=== PATIENT | male | born 1975 | race Caucasian/White ===

== ENCOUNTER 2018-11-19 11:27 | Outpatient (CLI) | payer OTHER, SELFPAY ==
[2018-11-19 12:53] LABS: Cholesterol 165 mg/dL (50-200); HDL Cholesterol 37 mg/dL (40-60); LDL CHOLESTEROL 69 mg/dL (<100); Triglyceride 240 mg/dL (30-150)
== END 2018-11-19 11:47 ==
PROVIDERS: PCP Family Medicine; Visit Provider Family Medicine
DX: Z00.00 Encounter for general adult medical examination without abnormal findings (principal); Z13.220 Encounter for screening for lipoid disorders
CPT/HCPCS: 36415; 80061; 83721

== ENCOUNTER 2019-03-02 07:09 | Emergency (ER) | payer OTHER, SELFPAY ==
[2019-03-02 07:12] VITALS: BP 151/89; PULSE 82; RESP 16; TEMP 36.5; O2SAT 99
--- NOTE | 2019-03-02 07:19 | W.ED.GENAD ---
Discharge Plan Disposition Patient Disposition: HOME Condition: Good Discharge Details Chief Complaint: EarProblem Clinical Impression: Otitis media Primary Care Provider: Glo Vazquez ED Provider: Jules Oglesby Home Meds and New Rx's Prescriptions: New amoxicillin-pot clavulanate [Augmentin] 875-125 mg tablet 1 tab PO BID Qty: 20 RF: 0 cyclobenzaprine 10 mg tablet 10 mg PO TID Qty: 14 RF: 0 hydrocodone-acetaminophen [Nokomis] 7.5-325 mg tablet 1 tab PO Q8H PRN (Reason: pain) Qty: 6 RF: 0 No Action diazepam 2 mg tablet 2 mg PO HS Qty: 90 RF: 0 hydrocodone-acetaminophen 5-325 mg tablet 1 tab PO QID MDD 2 PRN (Reason: pain) Qty: 28 RF: 0 multivitamin 1 EACH tablet 1 ea PO DAILY RF: 0 coenzyme Q10 [Co Q-10] 75 MG capsule 1 tab PO DAILY RF: 0 omega-3 fatty acids-fish oil 1 EACH capsule 1 ea PO DAILY RF: 0 magnesium 250 MG tablet 1 tab PO DAILY RF: 0 ibuprofen [Advil] 200 MG tablet 2 tab PO PRN RF: 0 cyclobenzaprine 10 MG tablet 10 mg PO BID PRNQty: 30 RF: 0 Discharge Instructions Instructions: Otitis Media (ED) Additional Instructions: You have an infection of your ear. Please take the antibiotic as directed. Please take 800 mg of ibuprofen every 6 hours and 1000 mg of Tylenol every 6 hours. If you notice any worsening of your symptoms, or any new symptoms such as vomiting, diarrhea, fever, chills, shortness of breath, chest pain, numbness, weakness, or fainting , please return immediately to the emergency department for reevaluation. Please follow up with your primary care provider as soon as possible for reassessment and reevaluation. As always, it was a pleasure participating in your medical care today. Referrals: Glo Vazquez MD, [place] [Primary Care Provider] - Medical Decision Making This is a 43-year-old male with past medical history of chronic pain, including chronic pain syndrome for the neck and shoulder, who presents today for left ear pain and a plugged sensation in the left ear as well as mild sore throat. Exam demonstrates notable otitis media on the left-hand side. He does state that the pain radiates down to the left arm and shoulder. He states that he has had similar episodes like this in the past with an ear infection. He denies any history of cardiac disease. Exam demonstrates no clinical evidence of meningitis, no abnormality for the upper extremity, no evidence of vascular compromise. We will treat for his otitis media, give Toradol and Tylenol. We will give Augmentin for his otitis media. I suspect that his left arm neck and shoulder pain are all secondary to his chronic pain in referred ear pain. However because of the patient's age, and atypical symptoms we will do a cardiac work-up to evaluate for any acute cardiac etiology causing his symptoms. The patient will be signed out to my colleague Dr. Woodall for final disposition. 8:09 AM The patient's laboratory work-up is returned, no significant abnormalities, normal troponin, no bandemia, normal electrolytes. EKG shows no evidence of STEMI. Patient has no chest pain, signs and symptoms are inconsistent with acute cardiac etiology. I feel that his muscles pain and spasm is secondary to referred pain from his ear infection. We discussed further work-up including further imaging at this point patient would like to hold off on any additional imaging at this time. I feel that the patient can be safely discharged home with treatment for his otitis media, as well as Flexeril for his mild muscle pain. Symptoms at this time are clinically consistent with dissection, carotid artery disease, or ACS. Discussed red flags which return the importance of close and prompt follow-up with his PCP this week. I have extensively reviewed the treatment plan and discharge instructions with the patient. I have addressed all patient concerns at this time. The patient was made aware of what symptoms to monitor for that would warrant a return to the emergency department. Discussed the plan with the patient, they demonstrate verbal understanding and agreement with our assessment and plan at this time. EKG 7: 21 Rate 82, intervals normal, sinus rhythm, less than 1 mm of nonspecific J-point non-tombstone elevation in V2 and V3 which appears to be nonspecific and unrelated to a STEMI. Notable J-point in the 4 V5 and V6. Inverted T wave in lead III. No Q waves. HPI General Date/Time Provider Initiated Documentation: 03/02/19 07:10. HPI Narrative: This is a 43-year-old male with a past medical history of chronic pain syndrome, chronic neck and back pain, who presents today for left ear pain. The pain started yesterday, he also has some mild sore throat, radiates down his left neck, and now into his shoulder and arm. He states that he has a history of episodes like this in the past usually associated with ear pain. He does admit to notable stuffed sensation of hearing in his left ear. He is able to drink and swallow. He denies any headache, severe posterior neck stiffness. He denies any fever or chills. He denies any other complaints at this time. He has taken some Tylenol Motrin at home but this is not improved his symptoms. He denies a history of cardiac disease, or family history of early secondary to heart attack. He denies any other complaints at this time. Related Data Home Medications Medication Instructions Recorded Confirmed coenzyme Q10 [Co Q-10] 1 tab PO DAILY 11/27/12 05/14/18 multivitamin 1 ea PO DAILY 11/27/12 05/14/18 omega-3 fatty acids-fish oil 1 ea PO DAILY 11/27/12 05/14/18 magnesium 1 tab PO DAILY 12/03/12 05/14/18 ibuprofen [Advil] 2 tab PO PRN 03/19/13 05/14/18 cyclobenzaprine 10 mg PO BID PRN #30 tab-cap 11/14/17 05/14/18 diazepam 2 mg tablet 2 mg PO HS #90 tab-cap 11/19/18 11/19/18 hydrocodone 5 mg-acetaminophen 325 1 tab PO QID PRN #28 tab MDD 2 11/19/18 11/19/18 mg tablet amoxicillin-pot clavulanate 1 tab PO BID #20 tab 03/02/19 [Augmentin] cyclobenzaprine 10 mg PO TID #14 tab 03/02/19 hydrocodone-acetaminophen [Nokomis] 1 tab PO Q8H PRN #6 tab 03/02/19 Previous Rx's Medication Instructions Recorded diazepam 2 mg tablet 2 mg PO HS #90 tab-cap 11/19/18 hydrocodone 5 mg-acetaminophen 325 1 tab PO QID PRN #28 tab MDD 2 11/19/18 mg tablet amoxicillin-pot clavulanate 1 tab PO BID #20 tab 03/02/19 [Augmentin] cyclobenzaprine 10 mg PO TID #14 tab 03/02/19 hydrocodone-acetaminophen [Nokomis] 1 tab PO Q8H PRN #6 tab 03/02/19 Allergies Allergy/AdvReac Type Severity Reaction Status Date / Time No Known Allergies Allergy Unverified 11/19/18 10:57 General Stated Complaint: EarProblem DEON: 3 Review of Systems Review of Systems All systems reviewed & are unremarkable except as noted in HPI and below PFSH Medical History (Updated 11/19/18 @ 11:02 by Glo Vazquez MD, [place]) Chronic pain syndrome (Chronic) Degeneration of cervical intervertebral disc (Chronic) Disorder characterized by back pain (Chronic) Herpes zoster (Resolved) Myalgia and myositis, unspecified (Resolved) Nevus, non-neoplastic (Resolved) Onychomycosis (Chronic 03/16/15) Restless legs (Chronic 02/06/12) Scrotal varices (Chronic) Family History Father Diabetes Lung cancer Mother No problems noted. Sister No problems noted. Sister No problems noted. Son No problems noted. Maternal Grandmother No problems noted. Paternal Grandmother No problems noted. Maternal Grandfather Cancer Paternal Grandfather No problems noted. Social History (Updated 11/20/18 @ 11:16 by Bertrand Donald) Smoking/Tobacco Use Status: Former Tobacco Use Second Hand Exposure: No Alcohol Intake: former Drug use: Never Substance use type: does not use Caregiver/Support person: No Household members: spouse and children Communication Needs: None Do you need help understanding health information?: Never current occupation: [employer] Pets and animals: Yes Pets and animals: cat(s) and dog(s) Sexually active: Yes Do you think of yourself as: straight/heterosexual Current gender identity: male What is your relationship status?: How often do you talk on the phone with friends or family?: three or more times per week How often do you get together with friends or relatives?: twice per week How often do you attend scientologist or adventist services?: decline to answer Do you belong to any clubs or organized social groups?: yes Panel score (0-1 are the most socially isolated patients): 3 Duration: 30-45 minutes/day Frequency: 3-4 times per week Susan/Evangelical: None Special susan needs: No Seatbelt use: always Helmet use: Yes Helmet use: always Drive intox or ride w/intox cdl team truck driver: No Do you feel safe at home: Yes Exam Narrative Exam Narrative: 1.Const: Well-nourished, Well-developed, appearing stated age 2.Eyes: PERRL, no conjunctival injection, and symmetrical lids. 3.ENT: Atraumatic external nose and ears. Moist MM. Neck: Symmetric, trachea midline, No thyromegaly. Mild erythema and swelling of the tonsils bilaterally. No signs of airway compromise. No evidence of Agustín angina. Notable left-sided otitis media. There is mild bulging from the tympanic membrane, notable erythema. Patient demonstrates good movement of cervical neck. There is no nuchal rigidity, no nuchal tenderness. Patient is able to flex the neck without any difficulty or significant pain. Negative Kernig's and Brudzinski sign. 4.CVS: +S1/S2, No murmurs or gallops. Peripheral pulses 2+ and equal in all extremities. Brisk capillary refill in all extremities. 5.RESP: Unlabored respiratory effort. Clear to auscultation bilaterally. No wheezes rales or rhonchi 6.GI: Soft, Nontender/Nondistended, No hepatosplenomegaly. No guarding or rebound. 7.MSK: Normocephalic/Atraumatic, Extremities w/o deformity or ttp No cyanosis or clubbing, Normal movement of all extremities, radial pulses +2, capillary refill intact, normal movement of the upper extremities bilaterally. 8.Skin: Warm, Dry. No rashes or lesions. 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 Sensation grossly intact, no focal neurologic deficits. 10.Psych: (AAO) x3. Appropriate mood and affect Course Vital Signs Temperature 36.5 C 03/02/19 07:12 Pulse 82 03/02/19 07:12 Respiratory Rate 16 03/02/19 07:12 Blood Pressure 151/89 H 03/02/19 07:12 Pulse Oximetry 99 03/02/19 07:12 Temperature 36.5 C 03/02/19 07:12 Temperature Source Skin 03/02/19 07:12 Pulse 82 03/02/19 07:12 Respiratory Rate 16 03/02/19 07:12 Respiratory Effort Non-Labored 03/02/19 07:12 Blood Pressure 151/89 H 03/02/19 07:12 Blood Pressure Position Sitting 03/02/19 07:12 Pulse Oximetry 99 03/02/19 07:12 Oxygen Delivery Method Room Air 03/02/19 07:12 Oxygen Flow Rate 0 03/02/19 07:12 Sign Out Sign Out Data: Sign Out Comment: Pending cardiac work-up, expect this to be benign. Suspect that this is all referred pain secondary to the left otitis media. Last updated by Jules Oglesby DO at 03/02/19 07:39
[2019-03-02] MEDS: Amoxicillin 875/Clav. 125 TAB PO (07:33)
[2019-03-02] MEDS: Acetaminophen 500 MG TAB 1000 MG PO (07:33)
[2019-03-02 07:34] LABS: Abs Immature Grans 0.04 k/cumm (0.0-0.09); Absolute Basophil Count 0.01 k/cumm (0.0-0.2); Absolute Lymphocyte Count 2.13 k/cumm (1.2-3.4); Absolute Monocyte Count 1.16 k/cumm (0.11-0.7); Absolute Neutrophil Count 9.07 k/cumm (1.2-6.7); Basophils % 0.1; Eosinophils % 0.8; HCT 46.8 % (40.0-50.0); HGB 15.8 g/dL (13.5-17.5); Immature Grans % 0.3; Mean Corp. HGB Concentration 33.8 g/dL (32.0-36.0); Mean Corpuscular Hemoglobin 29.8 pg (27.0-33.0); Mean Corpuscular Volume 88.1 fL (80-95); Mean Platelet Volume 10.3 fL (8.0-11.0); Monocytes % 9.3; Neutrophils % 72.5; Platelet Count 217 x1000/uL (130-400); RBC 5.31 m/cumm (4.50-6.00); RBC Distribution Width 13.5 % (11.8-14.1); White Blood Cell Count 12.51 k/cumm (4.4-10.8)
[2019-03-02] MEDS: Ketorolac 30 MG/ML VIAL IVP (07:34)
[2019-03-02 07:55] LABS: ALT 40 U/L (12-78); AST 13 U/L (15-37); Albumin 4.1 g/dL (3.4-5.0); Alkaline Phosphatase 99 U/L (46-116); Anion Gap 11.4 mmol/L (3-11); BUN 18 mg/dL (7-18); Bilirubin, Total 0.5 mg/dL (0.2-1.0); CO2 25.6 mmol/L (21.0-32.0); CREATININE 0.91 mg/dL (0.70-1.30); Calcium 9.4 mg/dL (8.5-10.1); Chloride 105 mmol/L (98-107); Glucose 126 mg/dL (70-100); Sodium 142 mmol/L (136-145); Total Protein 8.2 g/dL (6.4-8.2); Troponin I < 0.05 ng/mL (0.00-0.06)
[2019-03-02] MEDS: Cyclobenzaprine 10 MG TAB PO (08:03)
[2019-03-02 08:23] VITALS: BP 137/72; PULSE 77; RESP 16; O2SAT 100
== END 2019-03-02 08:21 | disposition home or self-care (01) ==
PROVIDERS: Student in an Organized Health Care Education/Training Program; Emergency Provider Emergency Medicine; PCP Family Medicine
DX: H66.92 Otitis media, unspecified, left ear (principal); M25.512 Pain in left shoulder; G89.29 Other chronic pain; R94.31 Abnormal electrocardiogram [ECG] [EKG]
CPT/HCPCS: 36415; 80053; 93005; 96374; 99284; 84484; 85025; 93010; J1885

== ENCOUNTER 2019-03-04 14:39 | Outpatient (CLI) | payer OTHER, SELFPAY ==
--- NOTE | 2019-03-04 15:00 | DI.RAD_ITS ---
SYMPTOMS/DIAGNOSIS: NECK AND LT ARM PAIN, M54.12, RADICULOPATHY, CERVICAL REGION CERVICAL SPINE: Odontoid, AP, lateral and bilateral oblique views. Comparison is 08/19/08. The odontoid is intact. The lateral masses are well aligned. There is reversal of the normal cervical lordosis centered at the C 4 - 5 level. There is disc space narrowing with endplate osteophytes at C 4 - 5 and C 5 - 6. There is mild to moderate narrowing of the neural foramen on the right from C 3 - 4 through C 5 - 6 and on the left at C 4 - 5 and C 3 - 4. No acute fractures or subluxations are seen. The prevertebral soft tissues are unremarkable. IMPRESSION: Moderate cervical spondylosis.
[2019-03-04 16:49] LABS: ESR 12 mm/hr (0-15)
[2019-03-04 17:00] LABS: HCT 42.8 % (40.0-50.0); HGB 14.5 g/dL (13.5-17.5); Mean Corp. HGB Concentration 33.9 g/dL (32.0-36.0); Mean Corpuscular Volume 88.6 fL (80-95); Mean Platelet Volume 9.8 fL (8.0-11.0); Platelet Count 220 x1000/uL (130-400); RBC 4.83 m/cumm (4.50-6.00); RBC Distribution Width 13.1 % (11.8-14.1); White Blood Cell Count 9.17 k/cumm (4.4-10.8)
== END 2019-03-04 14:59 ==
PROVIDERS: PCP Family Medicine; Visit Provider Family Medicine
DX: M54.12 Radiculopathy, cervical region (principal); D72.829 Elevated white blood cell count, unspecified; H92.09 Otalgia, unspecified ear; M54.2 Cervicalgia; M47.22 Other spondylosis with radiculopathy, cervical region
CPT/HCPCS: 36415; 85027; 85652; 72050

== ENCOUNTER 2019-03-27 03:54 | Outpatient (CLI) | payer OTHER, SELFPAY ==
--- NOTE | 2019-03-27 13:50 | DI.RAD_ITS ---
SYMPTOMS/DIAGNOSIS: LEFT NECK/ARM PAIN, CERVICALGIA, M54.2, ? APICAL LUNG MASS PA AND LATERAL CHEST: Comparison is made with thoracic spine film of April,. The cardiac and mediastinal contours have a normal appearance. The lungs are well inflated and clear. No rib or spine fractures seen. There is no evidence of an apical lung mass. IMPRESSION: Negative chest x-ray.
== END 2019-03-27 04:14 ==
PROVIDERS: PCP Family Medicine; Visit Provider Family Medicine
DX: M54.2 Cervicalgia (principal)
CPT/HCPCS: 71046

== ENCOUNTER 2019-04-01 01:19 | Outpatient (CLI) | payer OTHER, SELFPAY ==
--- NOTE | 2019-04-01 16:12 | DI.MRI_ITS ---
SYMPTOM/DIAGNOSIS: LEFT NECK AND ARM PAIN M54.12, CERVICAL RADICULOPATHY CERVICAL SPINE MRI: 04/01 MRI examination of the cervical spine was performed according to the usual protocol. There is mid to upper cervical kyphosis. There is linear focus of high signal seen on T2 sagittal images at the C-1 level. The axial images do not include this portion of the cervical spine and additional axial images are requested to evaluate this area. The linear abnormality is not confirmed on other sagittal views and there is a significant amount of artifact on sagittal views but the 3-D sagittal view also shows suggestion of a possible focus of abnormal signal at this level raising the possibility of syringomyelia. Otherwise intra cord signal is mostly normal except for a question of mild heterogeneity of signal at C5-6 and C6-7 levels, not confirmed on the axial images. No significant findings involving spinal canal or neural foramina at the C2-3 or C3-4 levels. At C4-5 there is bilateral neural foraminal narrowing and there is an apparent right sided disc herniation paracentral and small left lateral disc herniation or prominence of the disc osteophyte complex. At C5-6 there is bilateral neural foraminal narrowing and prominence of the disc osteophyte complex with possible superimposed disc herniation on the right laterally. No significant findings at C6-7. No significant findings at C7 T1. CONCLUSION: Prominence of the disc osteophyte complex with question superimposed right sided disc herniations at C4-5 and C5-6, and left sided disc herniation at C4-5. Bilateral neural foraminal narrowing noted at C4-5 and right sided neural foraminal narrowing noted at C5-6. Please note that there is a question of syringomyelia of the upper cervical spine which is not included on the axial images. I would request the patient return for additional axial imaging of the upper cervical spine.
== END 2019-04-01 01:39 ==
PROVIDERS: PCP Family Medicine; Visit Provider Family Medicine
DX: M54.12 Radiculopathy, cervical region (principal); M54.2 Cervicalgia; M50.221 Other cervical disc displacement at C4-C5 level; M50.222 Other cervical disc displacement at C5-C6 level; M79.602 Pain in left arm
CPT/HCPCS: 72141

== ENCOUNTER 2019-04-05 07:55 | Outpatient (CLI) | payer OTHER, SELFPAY ==
--- NOTE | 2019-04-05 15:15 | DI.MRI_ITS ---
SYMPTOM/DIAGNOSIS: ABNORMAL CERVICAL MRI R93.89, M54.12 CERVICAL RADICULOPATHY, ? SYRINGOMYELIA MRI CERVICAL SPINE: The patient returned for T2 sagittal and T2 axial sequences of the upper cervical region. There is a small area of high signal in the upper cervical liane, at the C2 level. It is linear in configuration and is consistent with a small area of syringomyelia. It measures 10 mm in length by 2 mm in diameter. 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
== END 2019-04-05 08:15 ==
PROVIDERS: PCP Family Medicine; Visit Provider Family Medicine
DX: M54.12 Radiculopathy, cervical region (principal); R93.89 Abnormal findings on diagnostic imaging of other specified body structures; G95.0 Syringomyelia and syringobulbia
CPT/HCPCS: 72141

== ENCOUNTER 2020-12-10 15:14 | Outpatient (REF) | payer OTHER, SELFPAY ==
[2020-12-10 15:44] LABS: HCT 45.1 % (40.0-50.0); HGB 15.1 g/dL (13.5-17.5); MCH 29.4 pg (27.0-33.0); MCHC 33.5 % (32.0-36.0); MCV 87.9 fL (80-95); MPV 10.8 fL (8.0-11.0); Platelet Count 263 10^3/uL (130-400); RBC 5.13 10^6/uL (4.36-5.78); RDW 13.1 % (11.8-14.1); RDW-SD 42.4 fL; WBC 7.96 10^3/uL (4.4-10.8)
[2020-12-10 16:45] LABS: Hemoglobin A1C 5.5 % (<5.7)
[2020-12-10 16:53] LABS: Iron 116 ug/dL (65-175); Total Iron Binding Capacity 348 ug/dL (250-450); Transferrin Sat 33 % (20-55)
[2020-12-10 16:57] LABS: ALT 64 U/L (16-63); AST 26 U/L (15-37); Albumin 4.3 g/dL (3.4-5.0); Alkaline Phosphatase 85 U/L (46-116); Anion Gap 10.6 mmol/L (3-11); BUN 22 mg/dL (7-18); Bilirubin, Total 0.5 mg/dL (0.2-1.0); CO2 26.4 mmol/L (21.0-32.0); CREATININE 0.8 mg/dL (0.70-1.30); Calcium 9.1 mg/dL (8.5-10.1); Chloride 108 mmol/L (98-107); Ferritin 309 ng/mL (26-388); Glucose 115 mg/dL (74-106); Potassium 4.2 mmol/L (3.5-5.1); Sodium 145 mmol/L (136-145); TSH (W/Ref FT4) 0.79 uIU/mL (0.36-3.74); Total Protein 7.3 g/dL (6.4-8.2)
== END 2020-12-10 15:15 | disposition home or self-care (01) ==
LOC: LBN 15:14
PROVIDERS: PCP Family Medicine; Visit Provider Family Medicine
DX: Z00.00 Encounter for general adult medical examination without abnormal findings (principal); R53.83 Other fatigue; I10 Essential (primary) hypertension; Z13.1 Encounter for screening for diabetes mellitus
CPT/HCPCS: 80053; 85027; 82728; 83036; 83540; 83550; 84443

== ENCOUNTER 2022-01-10 09:11 | Emergency (ER) | payer OTHER, SELFPAY ==
[2022-01-10 09:15] VITALS: BP 141/87; PULSE 72; RESP 18; TEMP 36.7; O2SAT 98
--- NOTE | 2022-01-10 09:15 | DI.RAD_ITS ---
Exam(s) XR FOREARM RT EXAM: XR FOREARM RT CLINICAL HISTORY: pain distal forearm. TECHNIQUE: 2D digital imaging was performed of the left forearm. Two views were obtained. AP and l ateral views were obtained. COMPARISON: No exams were available for comparison FINDINGS: BONES: No acute fracture is present. No bony destructive lesion is seen. Visualized portion of elbow and wrist joints are unremarkable. SOFT TISSUE: Normal. IMPRESSION: Unremarkable radiographs of the left forearm. DATA REPOSITORY: RADIATION DOSE DELIVERED:
--- NOTE | 2022-01-10 09:25 | W.ED.GENAD ---
Discharge Plan Disposition Patient Disposition: HOME Condition: Stable Discharge Details Clinical Impression: Traumatic hematoma of forearm Primary Care Provider: Glo Vazquez ED Provider: Tabatha Cash Home Meds and New Rx's Prescriptions: Continued diazepam 2 mg tablet 2 mg PO HS PRN (Reason: muscle spasm) Qty: 90 0RF Rx Instructions: TAKE FOR RESTLESS LEGS AT NIGHT. NO ALCOHOL. hydrocodone-acetaminophen 7.5-325 mg tablet 2 tab PO Q8H MDD 3 PRN (Reason: pain) Qty: 10 0RF multivitamin 1 EACH tablet 1 ea PO DAILY Co Q-10 75 MG capsule 1 tab PO DAILY omega-3 fatty acids-fish oil 1 EACH capsule 1 ea PO DAILY magnesium 250 MG tablet 1 tab PO DAILY ibuprofen [Advil] 200 MG tablet 2 tab PO PRN Discharge Instructions Instructions: Hematoma (ED) Additional Instructions: Ice and ibuprofen as needed for pain Elevate No evidence of fracture on your x-ray Please return earlier should you have any worsening complaints Referrals: Glo Vazquez MD, [place] [Primary Care Provider] - Medical Decision Making Patient appears well No evidence of fracture on x-ray Return precautions discussed and patient expressed understanding Neurovascularly intact Medical Records Medical records reviewed: Yes I reviewed the patient's medical records. Lab Data Lab results reviewed: Yes I reviewed the patient's lab results. HPI General Date/Time Provider Initiated Documentation: 01/10/22 09:18. HPI Narrative: This 46-year-old male presents with report of right forearm injury yesterday. He is playing basketball when his son accidentally cut his forearm with the elbow. He denies any additional injuries. He had pain and swelling since that time. Denies any sensation change. Otherwise healthy. Related Data Home Medications Medication Instructions Recorded Confirmed coenzyme Q10 75 mg capsule (Co 1 tab PO DAILY 11/27/12 01/10/22 Q-10) multivitamin 1 ea PO DAILY 11/27/12 01/10/22 omega-3 fatty acids-fish oil 300 1 ea PO DAILY 11/27/12 01/10/22 mg-1,000 mg capsule magnesium 250 mg tablet 1 tab PO DAILY 12/03/12 01/10/22 ibuprofen 200 mg tablet (Advil) 2 tab PO PRN 03/19/13 01/10/22 diazepam 2 mg tablet 2 mg PO HS PRN muscle spasm #90 12/16/21 01/10/22 tab-caps hydrocodone 7.5 mg-acetaminophen 2 tab PO Q8H PRN pain #10 tabs 12/16/21 01/10/22 325 mg tablet Previous Rx's Medication Instructions Recorded diazepam 2 mg tablet 2 mg PO HS PRN muscle spasm #90 12/16/21 tab-caps hydrocodone 7.5 mg-acetaminophen 2 tab PO Q8H PRN pain #10 tabs 12/16/21 325 mg tablet Allergies Allergy/AdvReac Type Severity Reaction Status Date / Time No Known Allergies Allergy Verified 01/10/22 09:18 General Stated Complaint: Orthopedic DEON: 4 Review of Systems Narrative: Review of systems obtained x3 and negative aside from medication change PFSH All Active Problems (Updated 01/10/22 @ 10:29 by CLEMENCIA Bashir) Traumatic hematoma of forearm (Acute) Fatigue (Acute) Syringomyelia (Acute) Cervical radiculopathy at C5 (Acute) Myalgia and myositis, unspecified (Acute) Otalgia (Acute) Annual physical exam (Acute) Scrotal varices (Chronic) L VARIOCELE Restless legs (Chronic 02/06/12) Onychomycosis (Chronic 03/16/15) Disorder characterized by back pain (Chronic) Degeneration of cervical intervertebral disc (Chronic) Chronic pain syndrome (Chronic) Medical History (Updated 01/10/22 @ 10:29 by CLEMENCIA Bashir) Abnormal MRI Herpes zoster 02/06/12 Herpes zoster (02/06/12) Myalgia and myositis, unspecified severe muscle pain Nevus, non-neoplastic NEVI Non-neoplastic nevus Family History (Updated 12/15/20 @ 13:01 by Cris Glaser) Father Diabetes Lung cancer Mother No problems noted. Sister No problems noted. Sister No problems noted. Son No problems noted. Maternal Grandmother No problems noted. Paternal Grandmother , 70 No problems noted. Maternal Grandfather , 60 Cancer Paternal Grandfather , 65 No problems noted. Social History (Updated 12/20/21 @ 09:31 by Anais Echevarria) Smoking/Tobacco Use Status: Never Second Hand Exposure: Yes Smoking risk assessment performed?: Yes Alcohol Intake: former Drug use: Never Substance use type: does not use Caregiver/Support person: No Household members: spouse and children Housing: house Communication Needs: None Do you need help understanding health information?: Never current occupation: HIGH SCHOOL PHYSICAL EDUCATION TEACHER Pets and animals: Yes Pets and animals: cat(s), dog(s) and other Details: Chickens Sexually active: Yes Do you think of yourself as: straight/heterosexual Current gender identity: male What is your relationship status?: How often do you talk on the phone with friends or family?: three or more times per week How often do you get together with friends or relatives?: three or more times per week How often do you attend gnosticist or adventist services?: decline to answer Do you belong to any clubs or organized social groups?: yes Panel score (0-1 are the most socially isolated patients): 3 What type of physical activity do you participate in: other Details: Baseball Duration: 60-90 minutes/day Frequency: 5-6 times per week Susan/Holiness: None Special susan needs: No Seatbelt use: always Helmet use: Yes Helmet use: always Drive intox or ride w/intox driver's license reviewing officer: No Do you feel safe at home: Yes Do you feel safe in your relationship?: Yes Exam Const General: cooperative, comfortable and no acute distress Extrem Other: Left wrist with palpable hematoma proximal forearm along the radial aspect neurovascularly intact Course Vital Signs Vital signs: Vital Signs Temperature 36.7 C 01/10/22 09:15 Pulse 72 01/10/22 09:15 Respiratory Rate 18 01/10/22 09:15 Blood Pressure 141/87 H 01/10/22 09:15 Pulse Oximetry 98 01/10/22 09:15 Temperature 36.7 C 01/10/22 09:15 Temperature Source Temporal Artery Scan 01/10/22 09:15 Pulse 72 01/10/22 09:15 Respiratory Rate 18 01/10/22 09:15 Respiratory Effort Non-Labored 01/10/22 09:19 Blood Pressure 141/87 H 01/10/22 09:15 Blood Pressure Position Sitting 01/10/22 09:15 Pulse Oximetry 98 01/10/22 09:15 Oxygen Delivery Method Room Air 01/10/22 09:15 Oxygen Flow Rate 0 01/10/22 09:15
--- OUTSIDE RECORDS SUMMARY | 2022-01-10 09:25 | XMS_ITS ---
:1975 Author Care Team Providers Name Role Phone FRANCO RODRIGUEZ Primary Care Provider [phone] [id number] MEDICAL RECORDS OTHER [phone] Allergies Code Code System Name Reaction Severity Status Onset NKDA ? Medications Name Status Start Date Stop Date ? ? coenzyme Q10 75 mg capsule Active ? Not a vailable Take 1 capsule every day by oral route. diazepam 2 mg tablet Active ? Not availab le Take 1 tablet as needed by oral route at bedtime. hydrocodone 7.5 mg-acetaminophen 325 mg tablet Active ? Not available Take 1 tablet every 8 hours by oral route. ibuprofen Active ? Not available 200 mg tablet 2 tabs po PRN magnesium 250 mg tablet Active ? Not avai lable Take 1 tablet every day by oral route. multivitamin Active ? Not available 1 tab PO daily omega-3 fatty acids-fish oil 300 mg-1,000 mg capsule Active ? Not available Take 1 capsule every day by oral route. Problems Name Status Onset Date Source ? Herpes Zoster Active 12/30/2020 ? Onychomycosis Active 12/30/2020 ? Restless Legs Active 12/30/2020 ? Non-neoplastic Nevus Active 12/30/2020 ? Degeneration of Cervical Intervertebral Disc Active ? Backache Active 12/30/2020 ? Muscle Pain Active 12/30/2020 ? Fatigue Active 12/30/2020 ? Excessive Daytime Sleepiness - Normal Night Sleep Active 12/31/2020 ? Obstructive Sleep Apnea Syndrome Active 07/20/2021 ? Procedures None recorded. Results Lab Results None recorded. Past Encounters 07/20/2021 Obstructive Sleep Apnea Syndrome Alicia Shankar YOUTH SERVICES SPECIALIST: [address] [place] [address] [employer] [address] [phone], [place]. 12/31/2020 Excessive Daytime Sleepiness - Normal Ni ght Sleep; Restless Legs Alicia Shankar NP: [address] [place] [address] [employer] [address] [id number], [place]. Social History Tobacco Smoking Status Never Smoker Vaccine List None recorded. Plan of Care Reminders Provider Appointments None recorded. ? ? Lab None recorded. ? ? Referral None recorded. ? ? Procedures None recorded. ? ? Surgeries None recorded. ? ? Imaging None recorded. ? ? Vitals 07/20/2021 09:15AM Office 30 Height Weight BMI Blood Pressure 172.72 cm 81.65 kg 27.4 kg/m2 128/74 mm[Hg] 12/31/2020 10:15AM New Patient 47 Height Weight BMI Blood Pressure 172.72 cm 83.42 kg 28 kg/m2 148/83 mm[Hg]
--- NOTE | 2022-01-10 09:49 | DI.VRAD_ITS ---
PROCEDURE INFORMATION: Exam: XR Right Forearm Exam date and time: 01/10/2022 9:35 AM Age: 46 years old Clinical indication: Injury or trauma; Other: Basketball injury last night; Blunt trauma (contusions or hematomas); Arm, lower; Right TECHNIQUE: Imaging protocol: XR Right forearm. Views: 2 views. COMPARISON: No relevant prior studies available. FINDINGS: Bones/joints: Normal. Soft tissues: Normal. IMPRESSION: No acute findings. Dictated and Authenticated by: Jose Garay MD. Ordering:NEMO Mays MD
== END 2022-01-10 10:38 | disposition home or self-care (01) ==
PROVIDERS: Emergency Provider Physician Assistant; PCP Family Medicine
DX: S50.11XA Contusion of right forearm, initial encounter (principal); W50.0XXA Accidental hit or strike by another person, initial encounter
CPT/HCPCS: 99283; 73090

== ENCOUNTER 2022-06-03 01:25 | Outpatient (CLI) | payer OTHER, SELFPAY ==
[2022-06-03 12:36] LABS: HCT 44.7 % (40.0-50.0); HGB 14.5 g/dL (13.5-17.5); MCH 29.3 pg (27.0-33.0); MCHC 32.4 % (32.0-36.0); MCV 90 fL (80-95); MPV 10.6 fL (8.0-11.0); Platelet Count 264 10^3/uL (130-400); RBC 4.95 10^6/uL (4.36-5.78); RDW 12.7 % (11.8-14.1); RDW-SD 41.8 fL; WBC 7.45 10^3/uL (4.4-10.8)
[2022-06-03 13:06] LABS: ALT 49 U/L (16-63); AST 21 U/L (15-37); Albumin 4.1 g/dL (3.4-5.0); Alkaline Phosphatase 96 U/L (46-116); Anion Gap 8.9 mmol/L (3-11); BUN 18 mg/dL (7-18); Bilirubin, Total 0.5 mg/dL (0.2-1.0); CO2 25.1 mmol/L (21.0-32.0); CREATININE 0.8 mg/dL (0.70-1.30); Calculated LDL 114 mg/dL (<100); Chloride 105 mmol/L (98-107); Cholesterol 192 mg/dL (<200); Estimated GFR 111.92 (mL/min/1.73m2); Ferritin 363 ng/mL (26-388); Glucose 94 mg/dL (74-106); HDL Cholesterol 40 mg/dL (40-60); Potassium 4.2 mmol/L (3.5-5.1); Sodium 139 mmol/L (136-145); TSH (W/Ref FT4) 0.93 uIU/mL (0.36-3.74); Total Protein 7.6 g/dL (6.4-8.2); Triglyceride 190 mg/dL (<150)
[2022-06-03 13:58] LABS: Iron 45 ug/dL (65-175)
== END 2022-06-03 01:26 | disposition home or self-care (01) ==
LOC: LOS 01:25
PROVIDERS: Absent Provider Family Medicine; PCP Family Medicine; Referring Provider Family Medicine; Visit Provider Family Medicine
DX: G25.81 Restless legs syndrome (principal); Z00.00 Encounter for general adult medical examination without abnormal findings
CPT/HCPCS: 36415; 80053; 80061; 85027; 82728; 83540; 84443

== ENCOUNTER 2023-07-10 18:46 | Outpatient (CLI) | payer OTHER, SELFPAY ==
[2023-07-10 14:59] LABS: Abs Immature Grans 0.05 10^3/uL (0.0-0.06); Absolute Basophil Count 0.05 10^3/uL (0.0-0.2); Absolute Eosinophil Count 0.16 10^3/uL (0.0-0.7); Absolute Monocyte Count 0.97 10^3/uL (0.1-0.8); Basophils % 0.4; Eosinophils % 1.4; HCT 45.5 % (40.0-50.0); HGB 15.7 g/dL (13.5-17.5); Immature Grans % 0.4; Lymphocytes % 31.6; MCH 29.8 pg (27.0-33.0); MCHC 34.5 % (32.0-36.0); MCV 86 fL (80-95); MPV 9.8 fL (8.0-11.0); Monocytes % 8.5; Neutrophils % 57.7; Platelet Count 253 10^3/uL (130-400); RBC 5.27 10^6/uL (4.36-5.78); RDW 12.8 % (11.8-14.1); RDW-SD 39.9 fL; WBC 11.44 10^3/uL (4.4-10.8)
[2023-07-10 15:00] LABS: Absolute Lymphocyte Count 3.62 10^3/uL (1.2-3.4)
[2023-07-10 16:00] LABS: Ferritin 406 ng/mL (26-388); Folate 13.3 ng/mL (8.6-20.0); TSH (W/Ref FT4) 2.84 uIU/mL (0.36-3.74); Vitamin B12 502 pg/mL (193-986)
== END 2023-07-10 18:47 | disposition home or self-care (01) ==
LOC: LBO 18:47
PROVIDERS: PCP Family Medicine; Visit Provider Surgery
DX: K62.5 Hemorrhage of anus and rectum (principal); R53.83 Other fatigue; E61.1 Iron deficiency
CPT/HCPCS: 36415; 82607; 82728; 82746; 84443; 85025; 85610

== ENCOUNTER 2023-07-18 06:57 | Day surgery (SDC) | payer OTHER, SELFPAY ==
[2023-07-18 07:23] VITALS: BP 137/88; PULSE 94; RESP 16; TEMP 36.7; O2SAT 97
--- NOTE | 2023-07-18 07:54 | W.ANESPRE ---
General Info Date of Service Date Performed: 07/18/23 Height: 5 ft 8 in Weight: 84.6 kg Body Mass Index (BMI): 28.3 Surgical Procedure: Operation Date: 07/18/23 08:35 Proposed Procedure Side Surgeon p Colonoscopy Pavan Ramírez MD Meds Allergies and Home Medications Allergies Allergy/AdvReac Type Severity Reaction Status Date / Time No Known Allergies Allergy Verified 07/18/23 07:20 Home Medication Medication Instructions Recorded coenzyme Q10 75 mg capsule (Co 1 tab PO DAILY 11/27/12 Q-10) multivitamin 1 ea PO DAILY 11/27/12 omega-3 fatty acids-fish oil 300 1 ea PO DAILY 11/27/12 mg-1,000 mg capsule magnesium 250 mg tablet 1 tab PO DAILY 12/03/12 ibuprofen 200 mg tablet (Advil) 2 tab PO PRN 03/19/13 amitriptyline 10 mg tablet 10 mg PO QHS #90 tabs 01/24/23 diazepam 2 mg tablet 2 mg PO HS PRN muscle spasm #90 01/24/23 tab-caps hydrocodone 7.5 mg-acetaminophen 2 tab PO Q8H PRN pain #10 tabs 01/24/23 325 mg tablet bisacodyl 5 mg tablet,delayed 5 mg PO ONCE colonscopy bowel prep 07/10/23 release (Dulcolax (bisacodyl)) #4 tabs polyethylene glycol 3350 17 238 g PO ONCE colonoscopy prep 07/10/23 gram/dose oral powder #238 grams Current Visit Medications: Current Medications Generic Name Dose Route Start Last Admin Trade Name Freq PRN Reason Stop Dose Admin Ringer's Solution 1,000 mls @ 80 mls/hr 07/18/23 06:00 IV 07/18/23 23:59 INFUSION GENESIS IV Miscellaneous Supplies 1 each 07/18/23 06:00 Iv Access IV 07/18/23 23:59 DIRECTED GENESIS Sodium Chloride 0 ml 07/18/23 06:00 Normal Saline Flush 10 Ml Syr IV 07/18/23 23:59 PRN PRN Sodium Chloride 0 ml 07/18/23 06:00 Normal Saline 10 Ml Vial IJ 07/18/23 23:59 DIRECTED PRN Sterile Water 0 ml 07/18/23 06:00 Water,Injection,Sterile 10 Ml Vial IJ 07/18/23 23:59 DIRECTED PRN PFSH Active Problems Active Problems: Problem Status Onset Code Abnormal REM sleep G47.8 Chronic narcotic use F11.90 Iron deficiency E61.1 Rectal bleeding K62.5 Encounter for screening colonoscopy Z12.11 Fatigue R53.83 Syringomyelia G95.0 Cervical radiculopathy at C5 M54.12 Myalgia and myositis, unspecified Otalgia H92.09 Annual physical exam Z00.00 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 Restless legs 02/06/12 G25.81 Onychomycosis 03/16/15 B35.1 Disorder characterized by back pain M53.9 Degeneration of cervical intervertebral disc M50.30 Chronic pain syndrome G89.4 Medical History Medical History Abnormal MRI Herpes zoster (02/06/12) Non-neoplastic nevus Myalgia and myositis, unspecified severe muscle pain Nevus, non-neoplastic NEVI Herpes zoster 02/06/12 Medical History Comments:: Last THC yesterday Tobacco Smoking/Tobacco Use Status: Never Passive smoking exposure: Yes Second hand exposure: Yes Alcohol Alcohol Intake: former Substance Use Substance use: Daily Substance use type: marijuana Vital Signs and Lab Results Vital Signs Most Recent Vital Signs in EMR: Most Recent Vital Signs Temp Pulse Resp BP Pulse Ox 36.7 C 94 H 16 137/88 97 07/18/23 07:23 12 07:23 07/18/23 07:23 07/18/23 07:23 07/18/23 07:23 Lab Results Blood Type / Crossmatch: No Data to Display Complete Blood Count: White Blood Count 11.44 10^3/uL (4.4-10.8) H 07/10/23 14:50 Red Blood Count 5.27 10^6/uL (4.36-5.78) 07/10/23 14:50 Hemoglobin 15.7 g/dL (13.5-17.5) 07/10/23 14:50 Hematocrit 45.5 % (40.0-50.0) 07/10/23 14:50 Platelet Count 253 10^3/uL (130-400) 07/10/23 14:50 Complete Metabolic Panel: No Data to Display Liver Function Panel: No Data to Display Coagulation Panel: INR International Normalized Ratio 1.0 (0.9-1.1) 07/10/23 14:50 Prothrombin Time 10.0 sec (9.1-11.1) 07/10/23 14:50 Cardiac Panel: No Data to Display Arterial Blood Gas: No Data to Display Venous Blood Gas: No Data to Display Pancreas Panel: No Data to Display Thyroid Panel: Thyroid Stimulating Hormone (TSH) 2.84 uIU/mL (0.36-3.74) 07/10/23 14:50 Infectious Disease: No Data to Display Blood Cultures: No Data to Display Toxicology Panel: No Data to Display Anesthesia Assessment and Plan Anesthesia History Personal History: No History of General Anesthesia Family History: No Family History of Anesthesia Complications Exercise Tolerance Exercise Tolerance: Metabolic Equivalents>4 Pertinent Negatives Pertinent Negatives: No Symptoms of GERD Cardiac & Pulmonary Exam Cardiac Exam: Normal S1/S2 Heart Sounds Pulmonary Exam: Clear Bilateral Breath Sounds Implantable Cardiac Device Does patient have a Pacemaker or an ICD?: No Airway Exam Known Difficult Airway: No Mallampati Class: 4 Mouth Opening: Normal (> 3cm) Thyromental Distance: Less than 3 cm Neck Range of Motion: Full ROM Neck Circumference: Normal Teeth Condition: Normal Dentition ASA Classification ASA Score: ASA 2 Emergency Case?: No NPO Status NPO Status: NPO Clears >2 hours, Solids >8 hours Anesthesia Plan Resuscitation Status: Full Code Anesthesia Technique: General Anesthesia Airway Planned: Natural Airway Monitors Used: Standard Monitors Preoperative Comments:: Cervical radiculopathy, primarily left sided now with residuals to left thumb per patient. Did discuss importance of proper positioning with the patient. He will work with us to ensure he is comfortable prior to heading to sleep.
[2023-07-18] MEDS: Lactated Ringers 1,000 ML 80 ML IV (07:55)
[2023-07-18 07:56] VITALS: BMI 28.3
--- NOTE | 2023-07-18 08:36 | COLE_ITS ---
Date of service: 07/18/23 Time of Service: 09:04 Colonoscopy Report Procedure Description: Procedures performed: 1. Colonoscopy with cold forceps biopsies Preoperative diagnosis: Screening colonoscopy Postoperative diagnosis: Grade 2 internal hemorrhoids, normal colon Surgeon: Jennifer Ramírez MD Indication for procedure: The patient is a 48-year-old man due for screening colonoscopy. He has no family history of colon cancer and no history of intra- abdominal surgeries. Incidentally, he does have a history of occasional rectal bleeding but it is rare and occasional only. Findings: Normal terminal ileum. Grossly normal colon. There is one region in the mid?transverse colon which had a slight polypoid appearance to it. This was about 3-5 mm in size and this was removed piecemeal with cold forceps technique to confirm either benign or polyp histology. In the rectum, grade 2 internal hemorrhoids were noted on retroflexion. Surveillance interval/follow-up: Pending pathology results of the biopsy. If sessile serrated or villous histology (not suspected) then a repeat colonoscopy in 3 years. If hyperplastic, simple adenomatous or completely benign, repeat colonoscopy in 10 years. Estimated blood loss: Minimal Complications: None Quality of prep: Excellent Procedure in detail: The patient gave written consent and was in agreement with the indications, the potential risks as well as the benefits of the procedure. He was taken to the endoscopy suite and laid in the left lateral decubitus position. A timeout was performed and anesthesia was administered which was tolerated well. I started the procedure. Digital rectal and visual examination was performed and grossly within normal limits. A well?lubricated flexible colonoscope was then introduced and passed without any notable difficulty all the way to the cecum identified by the ileo cecal valve and the appendiceal orifice. The terminal ileum was briefly intubated and looked normal visually. The scope was then slowly withdrawn with the above?noted findings. The patient tolerated the procedure well and was taken to the PACU in hemodynamically stable condition.
--- NOTE | 2023-07-18 09:16 | BOWEL_PTH ---
PATIENT: Jeremias Hoover LOC: [facility] U#:[id number] AGE/SX: 48/M ROOM: RE07/18/[address]: Pavan Ramírez : 1975 BED: DIS: 07/18/2023 SPEC #: [id number] RECD: 07/18/23 12:21 STATUS: [facility] #: [id number] SANDRA: 07/18/23 09:[address]: Pavan Ramírez DEPT: Surgical Specimen RECD BY: Tabatha Wilhelm ENTERED: 07/18/23 12:21 SP TYPE: Bowel OTHR DR: Glo Vazquez MD, DC Tissues: 1 - BIOPSY BOWEL Procedures: GROSS AND MICRO LEVEL 4 Comments: [id number]
--- NOTE | 2023-07-18 09:35 | W.PM.DSUDISC ---
Date of service: 07/18/23 Time of Service: 09:36 Discharge Plan Disposition Patient Disposition: Home Condition: Good Discharge Details Attending Provider: Pavan Ramírez Primary Care Provider: Glo Vazquez Home Meds and New Rx's Prescriptions: No Action polyethylene glycol 3350 17 gram/dose powder 238 g PO ONCE Qty: 238 0RF Rx Instructions: take per colonoscopy instructions bisacodyl [Dulcolax (bisacodyl)] 5 mg tablet,delayed release (DR/EC) 5 mg PO ONCE Qty: 4 0RF Rx Instructions: take per colonoscopy instructions diazepam 2 mg tablet 2 mg PO HS PRN (Reason: muscle spasm) Qty: 90 0RF Rx Instructions: TAKE FOR RESTLESS LEGS AT NIGHT. NO ALCOHOL. hydrocodone-acetaminophen 7.5-325 mg tablet 2 tab PO Q8H MDD 3 PRN (Reason: pain) Qty: 10 0RF Patient Comments: Pt took several weeks ago amitriptyline 10 mg tablet 10 mg PO QHS Qty: 90 5RF Patient Comments: pt took over a week ago multivitamin 1 EACH tablet 1 ea PO DAILY Co Q-10 75 MG capsule 1 tab PO DAILY omega-3 fatty acids-fish oil 1 EACH capsule 1 ea PO DAILY magnesium 250 MG tablet 1 tab PO DAILY ibuprofen [Advil] 200 MG tablet 2 tab PO PRN Discharge Instructions Additional Instructions: FINDINGS: No polyps or findings that were concerning for cancer. A very small polyp was removed and there is nothing you need to worry about. Some mild hemorrhoid disease was found in your rectum. This is extremely common, benign and nothing needs to be done about it. This could be the reason you see blood occasionally. It is probably related to constipation that is because of medication side effects and your diet. Stand Alone Forms: Colonoscopy Post Instructions Activity:: Activity as Tolerated Diet:: As Tolerated Discharge Orders Discharge Orders: Discharge Order (Routine); Ordered 07/18/23 Ordered By: Pavan Ramírez
[2023-07-18 09:39] VITALS: BP 123/88; PULSE 80; RESP 16; TEMP 36.6; O2SAT 97
[2023-07-18 10:07] VITALS: BP 118/85; PULSE 78; RESP 17; TEMP 36.5; O2SAT 97
--- NOTE | 2023-07-18 10:33 | W.ANESPOSTOP ---
Postoperative Evaluation Date, Time and Location Date Performed: 07/18/23 Time Performed: 10:33 Patient Location: Day Surgery Unit Vital Signs Most Recent Imported Vital Signs: Most Recent Vital Signs Temp Pulse Resp BP Pulse Ox 36.5 C 78 17 118/85 97 07/18/23 10:07 07/18/23 10:07 07/18/23 10:07 07/18/23 10:07 07/18/23 10:07 Pain Score Most Recent Pain Score: Most Recent Pain Score Pain Level 0 07/18/23 10:07 Assessment Mental Status: Awake (Alert & Oriented to Patient Baseline) Airway and Respiratory Function: Patent airway with normal (patient baseline) respiratory exam Cardiovascular Function: Hemodynamically Stable Hydration Status: Adequately Hydrated Nausea & Vomiting: No Nausea or Vomiting Pain: Pt. Denies Any Pain Peripheral Nerve Block: Patient did not receive a nerve block
== END 2023-07-18 10:35 | disposition home or self-care (01) ==
PROVIDERS: PCP Family Medicine; Visit Provider Student in an Organized Health Care Education/Training Program
PROC: 0DJD8ZZ Inspection of Lower Intestinal Tract, Via Natural or Artificial Opening Endoscopic (ICD-10-PCS; CPT 45378; principal; 2023-07-18 08:30)
DX: Z12.11 Encounter for screening for malignant neoplasm of colon (principal); D12.3 Benign neoplasm of transverse colon; K64.1 Second degree hemorrhoids; K62.5 Hemorrhage of anus and rectum; E61.1 Iron deficiency; F11.90 Opioid use, unspecified, uncomplicated
CPT/HCPCS: 45380; 00123; 88305; J2250

== ENCOUNTER 2024-02-13 10:02 | Outpatient (CLI) | payer OTHER, SELFPAY ==
[2024-02-13 13:01] LABS: ALT 56 U/L (16-63); AST 27 U/L (15-37); Albumin 4.2 g/dL (3.4-5.0); Alkaline Phosphatase 81 U/L (46-116); BUN 21 mg/dL (7-18); Bilirubin, Total 0.37 mg/dL (0.2-1.0); CREATININE 0.8 mg/dL (0.70-1.30); Calcium 9.3 mg/dL (8.5-10.1); Calculated LDL 63 mg/dL (<100); Chloride 109 mmol/L (98-107); Cholesterol 149 mg/dL (<200); Estimated GFR 110.53 (mL/min/1.73m2); Glucose 101 mg/dL (74-106); HDL Cholesterol 43 mg/dL (40-60); Potassium 4.4 mmol/L (3.5-5.1); Sodium 144 mmol/L (136-145); TSH (W/Ref FT4) 1.23 uIU/mL (0.36-3.74); Total Protein 7.7 g/dL (6.4-8.2); Triglyceride 217 mg/dL (<150)
[2024-02-13 20:16] LABS: Hepatitis C Ab w Rflx HCV PCR Negative (Negative)
== END 2024-02-13 10:03 | disposition home or self-care (01) ==
LOC: LOS 10:02
PROVIDERS: PCP Family Medicine; Referring Provider Family Medicine; Visit Provider Family Medicine
DX: I10 Essential (primary) hypertension (principal); Z00.00 Encounter for general adult medical examination without abnormal findings
CPT/HCPCS: 36415; 80053; 80061; 86803; 84443

== ENCOUNTER 2024-03-11 10:35 | Outpatient (REF) | payer OTHER, SELFPAY ==
--- NOTE | 2024-03-11 10:15 | SKI_PTH ---
PATIENT: Jeremias Hoover LOC: [facility] U#:[id number] AGE/SX: 48/M ROOM: RE03/11/[address]: Mera Owens : 1975 BED: DIS: 03/11/2024 SPEC #: [id number] RECD: 03/11/24 12:31 STATUS: [facility] #: [id number] SANDRA: 03/11/24 10:[address]: Mera Owens DEPT: Surgical Specimen RECD BY: Tabatha Wilhelm ENTERED: 03/11/24 12:32 SP TYPE: THERESA EPSTEIN DR: Glo Vazquez MD, DC Tissues: 1 - SKIN BIOPSY(SHAVE/PUNCH) Procedures: GROSS AND MICRO LEVEL 3 Comments: [id number]
== END 2024-03-11 10:36 | disposition home or self-care (01) ==
LOC: LBN 10:35
PROVIDERS: PCP Family Medicine; Referring Provider Surgery; Visit Provider Surgery
DX: L72.3 Sebaceous cyst (principal)
CPT/HCPCS: 88304; 88305

== ENCOUNTER → 2024-03-12 14:51 | Outpatient (CLI) | payer OTHER, SELFPAY ==
--- NOTE | 2024-03-12 13:30 | DI.RAD_ITS ---
Exam(s) XR FOOT RT COMPLETE EXAM: XR FOOT RT COMPLETE CLINICAL HISTORY: Right fourth metatarsophalangeal joint METATARSALGIA, M77.41. TECHNIQUE: 2D digital imaging was performed. Three views. COMPARISON: No exams were available for comparison FINDINGS: BONES: No acute fracture is present. No bony destructive lesion is seen. Small heel spurs. JOINTS: No dislocation present. Mild spurring dorsal talonavicular joint. SOFT TISSUE: Normal. IMPRESSION: small heel spurs. Minimal degenerative changes. DATA REPOSITORY: RADIATION DOSE DELIVERED:
== END ==
PROVIDERS: PCP Family Medicine; Visit Provider Podiatrist
DX: M77.41 Metatarsalgia, right foot (principal); M77.31 Calcaneal spur, right foot
CPT/HCPCS: 73630

== ENCOUNTER 2024-09-05 10:18 | Outpatient (CLI) | payer OTHER, SELFPAY ==
--- NOTE | 2024-09-05 10:07 | DI.RAD_ITS ---
Exam(s) XR CHEST 2V PA LATERAL EXAM: XR CHEST 2V PA LATERAL CLINICAL HISTORY: eval pna COUGH R05.9. TECHNIQUE: 2D digital imaging was performed. COMPARISON: No exams were available for comparison FINDINGS: 2 views: Heart size is normal. The mediastinum is not widened. Lungs are clear. No infiltrates nor pleural effusions. IMPRESSION: No acute pulmonary findings. DATA REPOSITORY: RADIATION DOSE DELIVERED:
== END 2024-09-05 10:38 ==
LOC: DI 10:18
PROVIDERS: PCP Family Medicine; Visit Provider Nurse Practitioner Family
DX: R05.9 Cough, unspecified (principal)
CPT/HCPCS: 71046